=== PATIENT | male | born 1970 | race Caucasian/White ===

== ENCOUNTER 2020-03-28 08:33 | Emergency (ER) | payer BC ==
[~2020-03-28] VITALS: Ht 182.9 cm; Wt 109.1 kg
[~2020-03-28 08:33] MED LIST: CYCL10TA10 PO
[2020-03-28] MEDS ORDERED: AMOX-117 PO (11:16)
[2020-03-28] MEDS ORDERED: ALBU8.5H8 IH (11:24)
== END 2020-03-28 11:32 | disposition home or self-care (01) ==
LOC: ER 08:35
DX: J01.10 Acute frontal sinusitis, unspecified (principal); R05 Cough; R06.02 Shortness of breath; Z87.442 Personal history of urinary calculi; Z79.2 Long term (current) use of antibiotics; Z79.899 Other long term (current) drug therapy
CPT/HCPCS: 87081; 87880; 99283

== ENCOUNTER 2023-06-27 02:16 | Emergency (ER) | payer BC, OTHER ==
[~2023-06-27] VITALS: Ht 182.9 cm; Wt 105.0 kg
[~2023-06-27 02:16] MED LIST changes: +ALBU8.5H17 IH; +CYCL-524 PO; -CYCL10TA10 PO
[2023-06-27] MEDS: HYDROmorphone 1 mg/ml syringe IM ONE (02:33)
[2023-06-27] MEDS: ondansetron 4mg rapidly disintigrating tab PO ONE (02:33)
[2023-06-27] MEDS: acetaminophen 1,000mg/100ml IV 100 ML IV STA (04:13)
[2023-06-27] MEDS: HYDROmorphone 1 mg/ml syringe IV PRN (04:14)
[2023-06-27 04:36] LABS: BASOPHILS # (AUTO) 0.1 X10'3 (0-0.2); EOSINOPHILS # (AUTO) 0.2 X10'3 (0-0.9); EOSINOPHILS % (AUTO) 1.9 % (0-6); HEMATOCRIT 47.9 % (42.0-52.0); HEMOGLOBIN 16.5 g/dl (14.0-17.9); LYMPHOCYTES # (AUTO) 2.1 X10'3 (1.1-4.8); LYMPHOCYTES % (AUTO) 19.2 % (21-51); MEAN CORPUSCULAR HEMOGLOBIN 28.9 PG (27.0-31.0); MEAN CORPUSCULAR HGB CONC 34.4 g/dL (33.0-36.5); MEAN CORPUSCULAR VOLUME 83.9 FL (78-98); MEAN PLATELET VOLUME 8.3 FL (7.4-10.4); MONOCYTES # (AUTO) 0.6 X10'3 (0-0.9); MONOCYTES % (AUTO) 5.2 % (2-12); NEUTROPHILS # (AUTO) 7.9 X10'3 (1.8-7.7); NEUTROPHILS % (AUTO) 72.7 % (42-75); PLATELET COUNT 199 X10'3 (140-440); RED CELL DISTRIBUTION WIDTH 13.3 % (11.5-14.5); WHITE BLOOD COUNT 10.9 X10'3 (4.5-11.0)
[2023-06-27 04:52] LABS: ALBUMIN 3.6 G/DL (3.4-5.0); ANION GAP 16 (8-16); BLOOD UREA NITROGEN 25 MG/DL (7-18); BUN/CREATININE RATIO 20.3 (10.0-20.0); CALCIUM 9.2 MG/DL (8.5-10.1); CHLORIDE 98 MMOL/L (99-107); CREATININE 1.23 MG/DL (0.60-1.10); SODIUM 135 MMOL/L (135-145); TOTAL CARBON DIOXIDE 21.5 MMOL/L (24-32); eCRCL 76 ML/MIN; eGFR 62 ML/MIN
[2023-06-27 04:53] LABS: POTASSIUM 4.1 MMOL/L (3.5-5.1)
[2023-06-27 04:59] LABS: GLUCOSE 445 MG/DL (70-104)
[2023-06-27 05:37] VITALS: BP 160/124; PULSE 109; RESP 13; TEMP 98; O2SAT 97
== END 2023-06-27 05:41 | disposition home or self-care (01) ==
LOC: ER 02:17
DX: G89.29 Other chronic pain (principal); M54.50 Low back pain, unspecified; Z76.5 Malingerer [conscious simulation]; Z79.899 Other long term (current) drug therapy
CPT/HCPCS: 36415; 72131; 80048; 85025; 96372; 96374; 96375; 99285; J0131; J1170